=== PATIENT | male | born 1980 | race Caucasian/White ===

== ENCOUNTER 2017-01-25 20:11 | Emergency (ER) | payer OTHER ==
[2017-01-25] MEDS ORDERED: CIPROFLOXACIN 500 MG TAB PO ONE (20:19)
--- NOTE | 2017-01-25 20:19 | EDPHY ---
H & P Time Seen by Provider: 01/25/17 20:14 HPI/ROS: CHIEF COMPLAINT: Sore throat, runny nose, fevers HISTORY OF PRESENT ILLNESS: The patient is a 36-year-old man who is sent here from the urgent care. He presented there complaining of runny nose, sore throat , fevers and cough for the last 3 days. They performed a flu and strep PCR both of which were negative. He was afebrile there. He had not taken any antipyretics recently. While he was there he mentioned to them that he had had black tarry stool a few days ago and had a history of elevated LFTs as well as substance abuse. At that point they recommended he come here for further workup. During my discussion the patient tells me that all of those things are somewhat remote. He has not had any drugs in the last several months and has not used alcohol for 4 years. He has had mildly elevated LFTs that they are following in the clinic. No abdominal pain. Does have a history of mild heartburn. He did have a single episode of tarry stool few days ago but has not since. He was primarily concerned about having the flu or strep throat. He does not wish to be worked up for GI bleed or liver disease. REVIEW OF SYSTEMS: Constitutional: See HPI EENTM: See HPI denies: blurred vision, double vision Respiratory: See HPI denies: shortness of breath Cardiac: denies: chest pain, irregular heart rate, lightheadedness, palpitations Gastrointestinal/Abdominal: See HPI denies: abdominal pain, diarrhea, nausea, vomiting, Genitourinary: denies: dysuria, frequency, hematuria, pain Musculoskeletal: denies: joint pain, muscle pain Skin: denies: lesions, rash, jaundice, bruising Neurological: denies: headache, numbness, paresthesia, tingling, dizziness, weakness Hematologic/Lymphatic: denies: blood clots, easy bleeding, easy bruising Immunologic/allergic: denies: HIV/AIDS, transplant EXAM: GENERAL: Well-appearing, well-nourished and in no acute distress. HEAD: Atraumatic, normocephalic. EYES: Pupils equal round and reactive to light, extraocular movements intact, sclera anicteric, conjunctiva are normal. ENT: TMs normal, nares congested , oropharynx mildly erythematous without exudates. Moist mucous membranes. NECK: Normal range of motion, supple without lymphadenopathy or JVD. LUNGS: Breath sounds clear to auscultation bilaterally and equal. No wheezes rales or rhonchi. HEART: Regular rate and rhythm without murmurs, rubs or gallops. ABDOMEN: Soft, nontender, normoactive bowel sounds. No guarding, no rebound. No masses appreciated. : No visible hemorrhoids, brown stool obtained and sent to the lab BACK: No CVA tenderness, no spinal tenderness, step-offs or deformities EXTREMITIES: Normal range of motion, no pitting or edema. No clubbing or cyanosis. NEUROLOGICAL: Cranial nerves II through XII grossly intact. Normal speech, normal gait. 5/5 strength, normal movement in all extremities, normal sensation PSYCH: Normal mood, normal affect. SKIN: Warm, dry, normal turgor, no visible rashes or lesions. Source: Patient, Family - Medical/Surgical History Hx Asthma: No Hx Chronic Respiratory Disease: No Hx Diabetes: No Hx Cardiac Disease: No Hx Renal Disease: No Hx Cirrhosis: No Hx Alcoholism: No - Family History Significant Family History: No pertinent family hx - Social History Smoking Status: Former smoker Alcohol Use: Other Drug Use: Other Constitutional: Initial Vital Signs Temperature (C) 36.9 C 01/25/17 20:19 Heart Rate 98 01/25/17 20:19 Respiratory Rate 16 01/25/17 20:19 Blood Pressure 132/81 H 01/25/17 20:19 O2 Sat (%) 95 01/25/17 20:19 O2 Delivery Mode Room Air Allergies/Adverse Reactions: cefaclor [From Ceclor] Allergy (Verified 01/25/17 20:18) Penicillins Allergy (Verified 01/25/17 20:18) Home Medications: Medication Instructions Recorded Abilify 2 mg (*) 2.5 mg 01/25/17 Inderal 40mg (*) 01/25/17 Nexium 01/25/17 Medical Decision Making ED Course/Re-evaluation: The patient is primarily here for upper respiratory tract infectious symptoms. He has already had a negative flu and strep test completed. I performed a rectal exam was unremarkable for back stool. The patient did not wish to have blood work LFTs or ultrasound done. These are being followed by his primary and are appropriate as an outpatient workup rather than an emergent workup. The patient denies being here for his GI symptoms and states that he was primarily concerned about his respiratory symptoms. He thinks that the provider at the urgent care over-reacted and that he does not need to be here. I reassured him that this is likely viral and encouraged hydration and rest. He understands and is eager to go home. He declines further workup or testing. He is afebrile and has stable vital signs. He does have occult positive stool but grossly negative. He will continue taking antacids. Differential Diagnosis: Partial list of the Differential diagnosis considered include but were not limited to; upper respiratory tract infection, influenza, strep throat, and although unlikely based on the history and physical exam, I also considered pneumonia, GI bleed, peptic ulcer disease. I discussed these differential diagnoses and the plan with the patient as well as the usual and expected course. The patient understands that the diagnosis is provisional and that in medicine we are not always correct and that further workup is often warranted. Usual and customary warnings were given. All of the patient's questions were answered. The patient was instructed to return to the emergency department should the symptoms at all worsen or return, otherwise to followup with the physician as we discussed. - Data Points Laboratory Results: 01/25/17 20:33 Stool Occult Bld Scrn POSITIVE H (NEGATIVE) Medications Given: Discontinued Medications Ciprofloxacin (Cipro) 500 mg PO EDNOW ONE PRN Reason: Protocol Stop: 01/25/17 20:20 Last Admin: 01/25/17 21:08 Dose: Not Given Departure - Departure Disposition: Home, Routine, Self-Care Clinical Impression: Upper respiratory tract infection Qualifiers: URI type: unspecified viral URI Qualified Code(s): J06.9 - Acute upper respiratory infection, unspecified Condition: Fair Instructions: Upper Respiratory Infection (ED) Referrals: NONE *PRIMARY CARE P,. [Primary Care Provider] - As per Instructions Stand Alone Forms: Statement of Treatment
[2017-01-25 20:27] VITALS: BP 132/81; PULSE 98; RESP 16; TEMP 98.4; O2SAT 95
== END 2017-01-25 20:50 | disposition home or self-care (01) ==
LOC: CED 20:11
DX: J06.9 Acute upper respiratory infection, unspecified (principal); Z87.891 Personal history of nicotine dependence
CPT/HCPCS: 82270-PO